=== PATIENT | female | born 1965 | race Caucasian/White ===

== ENCOUNTER 2025-07-30 12:59 | Outpatient (CLI) | payer OTHER, SELFPAY ==
--- OUTSIDE RECORDS SUMMARY | 2024-04-29 16:30 | XMS_ITS ---
Author Organization [facility] [place] ([address]) Address [address] [place] [address] Care Team Providers Care Public Address Systems Mechanic Name Role Phone Ian Doshi MD Primary Care Provider Unavail able Carole Junior Unavailable [phone] [facility], Provider Unavailable Unavailab le Allergies Allergen (clinical drug ingredient) Drug/Non Drug Allergy documented on EMR Reaction Allergy Type Onset Date Status Substance with sulfonamide structure and antibacterial mechanism of action (substance) SULFA (uncoded) Septra Allergy [facility] Conversion Encounter Medications Medication SIG (Take, Route, Frequency, Duration) Notes Start Date End Date Status MULTIVITAMIN WITH MINERALS *Please review for potential replacement for e-prescription and drug interaction check* Active Valtrex 500 MG 1 tab(s) orally once a day Active Celecoxib 200 MG 1 cap(s) orally once a day Active Pantoprazole Sodium 40 MG 1 tab(s) orally once a day Active PARoxetine HCl ER 37.5 MG 1 tab(s) orally once a day (in the morning) Active Encounters Encounter Location Date Provider Diagnosis [address] [address] 04/29/2024 Provider [facility] Plan Of Treatment No Information Progress Notes * Shabana RODRIGUEZ LDOB: [birth year] (60 yo F)Acc No.[id number]:04/29/2024 Patient: Shabana KEARNEY Provider: Yecenia rob Migration :1965 A ge:59 Y S ex:Female Date:04/29/2024 Address:[address] [place] [address], [facility] Pcp:Ian Doshi MD Subjective: * Chief Complaints: * 1 . [facility] En[facility]. * Medical History: * Medications: T aking MULTIVITAMIN WITH MINERALS , Notes to Pharmacist: *Please review for potential replacement for e-prescription and drug interaction check*, Taking Valtrex 500 MG Tablet 1 tab(s) orally once a day , Taking Celecoxib 200 MG Capsule 1 cap(s) orally once a day , Taking Pantoprazole Sodium 40 MG Tablet Delayed Release 1 tab(s) orally once a day , Taking PARoxetine HCl ER 37.5 MG Tablet Extended Release 24 Hour 1 tab(s) orally once a day (in the morning) * Allergies: S ULFA: Septra. Objective: * Vitals: Assessment: Plan: * Treatment: * Billing Information: * Visit Code: * Procedure Codes: * Electronic signature of Hermes LAWSON-Migration on 07/30/2025 at 03:29 PM CDT Sign off status: Pending * Provider: Yecenia rob Migration Date: 04/29/2024 Generated for Tonia jimenes/Loreto/Ken on: 07/30/2025 03:29 PM CDT
--- OUTSIDE RECORDS SUMMARY | 2025-06-13 04:35 | XMS_ITS | Continuity of Care Document ---
Author Organization [employer] [facility] Address [address] [place] [address] Phone Care Team Providers Care Data Visualization Developer Name Role Phone Radha Zazueta MD Unavailable Unavailable Allergies, Adverse Reactions, Alerts Substance Reaction Status Criticality Sulfa (Sulfonamide Antibiotics) Unknown Active No Information Medications Medication Instructions Dosage Effective Dates (start - stop) Status Comments amitriptyline 25 mg tablet take 1 tablet by oral route every day at bedtime 25 MG - Active pantoprazole 40 mg tablet,delayed release take 1 tablet by oral route every day 40 MG - Active paroxetine ER 37.5 mg tablet,extended release 24 hr take 1 tablet by oral route every day 37.5 MG - Active celecoxib 200 mg capsule take 1 capsule by oral route every day as needed 200 MG - Active valacyclovir 500 mg tablet take 1 tablet by oral route every day 500 MG - Active vitamin B complex capsule - Active turmeric 400 mg capsule - Active magnesium 250 mg tablet take 1 tablet by oral route every day 1 tablet - Active Paxlovid 300 mg (150 mg x 2)-100 mg tablets in a dose pack take by oral route 2 times every day for 5 days per package directions 0.00 - No Longer Active Procedures Procedure Date CBC, INC PLATELETS AND DIFFERENTIAL COMPREHEN METABOLIC PANEL CMP LIPID PANEL ROUTINE VENIPUNCTURE VA MED LIST DOCD IN RCRD Pt inelig neg scrn depres IMMUN ADMIN (INC PERCUTANEOUS) SINGLE, F IRST INJ TDAP INTRAMUSCULAR USE PREVENTATIVE-NEW: 40-64 BODY MASS INDEX DOCD SYST BP >= 140 MM HG6 IT DIAST BP >= 90 MM HG Advance Directives Directive Yes / No Effective Date File Name Life Support Not Answered N/A N/A Intubation Not Answered N/A N/A Antibiotics Not Answered N/A N/A IV Fluid Support Not Answered N/A N/A Tube Feed Not Answered N/A N/A Other Directive N/A N/A WARNING:The information contained in this section is historical and is provided for information only and does not constitute a legal document or any assurance that the information is still accurate. Please verify the information with the beckett of the legal document before using it for clinical purposes. Encounters Encounter Description Practice Location Reason(s) For Visit Diagnoses Date Provider Providers Copied on Encounter [facility], [address], [place], [place], [address] , [place] tel: [phone] [facility] No Information 5 Marbin Garcia. [address] [place], [place], [address] , [place]. tel: [phone] [facility], [address], [place], [place], [address] , [place] tel: [phone] [facility] No Information 5 Reid [address]. [address], [id number] , [place]. tel: [phone] Referring Provider: Radha Monahan, [address] [place], [address] . tel:[phone] [facility], [address], [place], [place], [address] , tel: [phone] [facility] Routine medical exam Feb-2 5 Marbin Garcia. [address] [place], [place], [address] , [place]. tel: [phone] Referring Provider: Rahda Monahan, [address] [place], [address] . tel:[phone] [facility], [address], [place], [place], [address] , [place] tel: [phone] [facility] No Information Feb-0 5 Marbin Garcia. [address] [place], [place], [address] , [place]. tel: [phone] Referring Provider: Radha Monahan, [address] [place], [address] . tel:[phone] PREVENTATIVE- NEW: 40-64 [facility], [address], [place], [place], [address] , [place] tel: [phone] [facility] preventive exam (chief complaint)C hronic Conditions (chief complaint) Blood pressure elevated without history of HTNRoutine medical examPostherpetic neuralgiaChronic GERDAnxiety 5 Marbin Garcia. [address] [place], [place], [address] , [place]. tel: [phone] Referring Provider: Radha Monahan, [address] [place], [address] . tel:[phone] Family History Family Member Type Diagnosis Age At Onset Father Problem Migraine headaches Sister Problem Allergies Mother Problem Hypercholesterolemia Sister Problem Osteoporosis Paternal grandmother Problem Cancer, breast Father Problem Hypertension Paternal grandfather Problem Alcoholism Father Problem Depression Father Problem Eczema Mother Problem Depression Mother Problem Allergies Paternal grandfather Problem Allergies Father Problem Allergies Sister Problem Hypertension Mother Problem Osteoporosis Sister Problem Depression Mother Problem Hypertension Mother Problem Irritable bowel syndrome Paternal grandmother Problem Migraine headaches Mother Problem Eczema Paternal grandfather Problem Osteoporosis Immunizations Vaccine Date Status Comments Tdap administered Source: [facility] Record Payers Payer name Insurance type Covered green party ID Authoriza tikhoi(s) [employer] CI [id number] [employer] CI [id number] Social History Type Description Quantity Date Captured Comments Alcohol Use Details Unknown Caffeine Use Details Unknown Tobacco Use Status No Information Smoking Status No Information Sex Female Sexual Orientation Straight or heterosexual Gender Identity Female Chief Complaint And Reason For Visit No Information Reason For Referral Reason For Referral No Information Plan Of Treatment Date Type Action Status Appointment Shabana Abdi BOOKED History Of Present Illness Encounter Date Complaint History Of Prese nt Illness Chronic Conditions *See Chronic Conditions HPI preventive exam Menopausal sympt oms positive for: hot flashes. Pertinent negatives include anxiety and depression. The patient does drink alcohol. Additional information: Routine PE done today.Previously was seeing Dr. Doshi in [place]. Sees Dr. Aquino, facing slitter, for regular pap smears UTD per pt.States colonoscopy was last done by Dr. Dixon in 2023. States mammogram and bone density are up to date. Stays very active. Functional Status Date Functional Assessmen t No Information Instructions Date Instruction Additional Infor mation continue amitriptyline Related t o Postherpetic neuralgia continue pantoprazole Related to Chronic GERD continue paroxetine Related to A nxiety Tdap given todayreco mmend getting the shingles vaccine at the pharmacySchedule fasting labs in 3 weekscontinue [address] with Dr. Pattersonchedjaved your mammogram you are due for next month Related to Routine medical exam Check your blood pre ssure daily at home and bring in log of home readings to your nurse visit in 3 weekslimit salt intaketry to do some regular walking Related to Blood pressure elevated without history of HTN Immunizations Assessments Type Assessment Date No Information Patient Care Teams Name Effective Dates (start - stop) Status Members No Information
--- OUTSIDE RECORDS SUMMARY | 2025-06-18 10:00 | XMS_ITS ---
Author Organization [facility] Address [address] [place], [place] [id number] Care Team Providers Care Gasateria Attendant Name Role Phone AISHWARYACory AMOL Unavailable [phone] Radha Zazueta Unavailable Unavailable Allergies Allergen (clinical drug ingredient) Drug/Non Drug Allergy documented on EMR Reaction Allergy Type Onset Date Status Septra Unknown Drug Allergy Active Substance with sulfonamide structure and antibacterial mechanism of action (substance) Sulfa Antibiotics Unknown Drug Allergy Active REASON FOR VISIT The patient returns for follow-up of a left sided 5th metatarsal neck fracture. It is doing well from a pain and swelling standpoint, but it is mangle tender cloth Medications Medication SIG (Take, Route, Frequency, Duration) Notes Start Date End Date Status valACYclovir HCl 500 MG Oral; Duration: 90 Days Active Amitriptyline HCl 25 MG Oral; Duration: 90 Days Active Celecoxib 200 MG Oral; Duration: 90 Days Active Pantoprazole Sodium 40 MG Oral; Duration: 90 Days Active PARoxetine HCl ER 37.5 MG Oral; Duration: 90 Days Active oxyCODONE-Acetaminophen 5-325 MG 1 tablet as needed Orally every 6 hrs; Duration: 5 days 02/16/2024 Active Pantoprazole Sodium Active Vital Signs Height 68.00 in 06/18/2025 Weight 169 lbs 06/18/2025 BMI 25.69 kg/m2 06/18/2025 Height-cm 172.72 cm 06/18/2025 Weight-kg 76.66 kg 06/18/2025 Encounters Encounter Location Date Provider Diagnosis [facility] [address] [place], [place] [id number] 06/18/2025 AMOL NEFFCory Left foot pain M79.6 72 and Nondisplaced fracture of fifth metatarsal bone, left foot, subsequent encounter for fracture with routine healing S92.355D Assessments Encounter Date Diagnosis (ICD Code) Assessment Notes Treatment Notes Treatment Clinical Notes Section Notes 06/18/2025 Left foot pain (ICD-10 - M79.672) 06/18/2025 Nondisplaced fracture of fifth metatarsal bone, left foot, subsequent encounter for fracture with routine healing (ICD-10 - S92.355D) Fracture Care: I discussed the nature and etiology of the injury to the patient and answered all questions. I discussed rest, immobilization, and time frame for healing. I explained that lack of compliance can lead to delayed healing or nonunion. Continue CAM: Advised the patient to continue to wear the CAM boot as directed and to limit activity. 06/18/2025 Other Plan Of Treatment Treatment Notes Assessment Notes Nondisplaced fracture of fif th metatarsal bone, left foot, subsequent encounter for fracture with routine healing Fracture Care: I discussed the nature and etiology of the injury to the patient and answered all questions. I discussed rest, immobilization, and time frame for healing. I explained that lack of compliance can lead to delayed healing or nonunion. Continue CAM: Advised the patient to continue to wear the CAM boot as directed and to limit activity. Next Appt Details Follow Up: 2 Weeks, Reason: Repeat xrays 3 views of the left foot. Anticipate resolution Progress Notes * JENNA RODRIGUEZ LDOB: [birth year] (60 yo F)Acc No.[id number]:06/18/2025 Patient: JENNA KEARNEY Provider: Nola Magana DPM :1965 A ge:60 Y S ex:Female Date:06/18/2025 Address:[address] [place] [address] Subjective: * Chief Complaints: * 1 . The patient returns for follow-up of a left sided 5th metatarsal neck fracture. It is doing well from a pain and swelling standpoint, but it is mangle tender cloth. * HPI: H [facility] cam [facility]. Patient states that the foot seems to be doing good. She states that there is slight pain every once in a while. Patient has been icing the foot as needed. , MA: isadora. * ROS: G eneral / Constitutional: Patient denies w eakness. R espiratory: Patient denies c hronic cough, shortness of breath, sputum production. C ardiovascular: Patient denies c hest pain, history of ME, irregular heartbeat. M usculoskeletal: Patient complains of j oint stiffness, arch pain, flat feet/ planus, joint pain. P eripheral Vascular: Patient denies b lanching of skin, cold extremities, decreased sensation in extremities. S kin: Patient denies f ungal nails, itching. N eurologic: Patient denies d izziness, gait abnormality, headache. * Medical History: A kelly reflux. * Social History: M igrated Social History: M igrated Social History: Alcohol intake : , Smoking Status : Never smoked , History of tobacco use :. * Medications: T aking Pantoprazole Sodium , Taking oxyCODONE-Acetaminophen 5-325 MG Tablet 1 tablet as needed Orally every 6 hrs , Taking Amitriptyline HCl 25 MG Tablet Oral , Taking valACYclovir HCl 500 MG Tablet Oral , Taking Celecoxib 200 MG Capsule Oral , Taking PARoxetine HCl ER 37.5 MG Tablet Extended Release 24 Hour Oral , Taking Pantoprazole Sodium 40 MG Tablet Delayed Release Oral , Medication List reviewed and reconciled with the patient * Allergies: S ulfa Antibiotics, Septra. Objective: * Vitals: S hoe Size: 9, Wt:169lbs, Wt-k.66 kg, Ht: 68.00 in, Ht-cm: 172.72 cm, BMI:25.69Index, Body Surface Area: 1.92. * Examination: C onstitutional: Constitutional T he patient is awake, alert, well developed, well groomed and well nourished. D ermatologic: Skin findings: S kin is warm, dry, supple with no breaks in the skin. Slight ecchymosis to the left forefoot, lateral portion. V ascular: Dorsalis pedis pulse: 2 /4, bilateral. Posterior tibial pulse: 2 /4, bilateral. Capillary refill: l ess than 3 seconds. Edema: m inimal edema to the left 4th and 5th MPJ. ? N eurologic: Gross sensation G ross sensation is intact to light touch.? M usculoskeletal: Muscle Strength M uscle strength is 5/5 in regards to dorsiflexion, plantarflexion, inversion, and eversion in bilateral lower extremities. Pain on palpation m ild pain on palpation to the left 5th metatarsal head, neck, and distal shaft of the left foot. R adiographs: Left Foot T here is a faint transverse radiolucent line within the 5th metatarsal neck of the left foot. Xray Order T est Requested: 3 Views Weightbearing (AP, LAT, Oblique) Foot, left. Assessment: * Assessment: 1. N ondisplaced fracture of fifth metatarsal bone, left foot, subsequent encounter for fracture with routine healing - S92.355D (Primary) 2 . L eft foot pain - M79.672 ? Plan: * Treatment: * Immunizations: Immunization record has been reviewed and updated. * Procedure Codes: 7 3630 X-RAY EXAM OF FOOT, Modifiers: LT * Follow Up: 2 Weeks (Reason: Repeat xrays 3 views of the left foot. Anticipate resolution) * Billing Information: * Visit Code: 69598 Office Visit, Est Pt., Level 3. * Procedure Codes: 76164 X-RAY EXAM OF FOOT. Modifiers: LT * Electronic signature of AMOL MAGANA DPM on 07/30/2025 at 03:29 PM CDT Sign off status: Pending * Provider: Nola Magana DPM Date: 0 06/18/2025 Generated for Tonia jimenes/Loreto/Ken on: 0 07/30/2025 03:29 PM CDT History and Physical Notes * HPI (History of Present Illness) Category Sub-Category Detail Notes Category Not es HPI Follow Up Visit Patient presents for follow-up visit for left cam boot. Patient states that the foot seems to be doing good. She states that there is slight pain every once in a while. Patient has been icing the foot as needed. , MA: [facility] Examination Category Sub-Category Detail Notes Category Not es Dermatologic Skin findings: Skin is warm, dr y, supple with no breaks in the skin. Slight ecchymosis to the left forefoot, lateral portion Neurologic Gross sensation Gross sensation is intact to light touch Vascular Dorsalis pedis pulse: 2/4, bilateral Edema: minimal edema to the left 4th and 5th MPJ Capillary refill: less than 3 seconds Posterior tibial pulse: 2/4, bilateral Musculoskeletal Muscle Strength Muscle strength is 5/5 in regards to dorsiflexion, plantarflexion, inversion, and eversion in bilateral lower extremities Pain on palpation mild pain on palpati on to the left 5th metatarsal head, neck, and distal shaft of the left foot Constitutional Constitutional The patient is a wake, alert, well developed, well groomed and well nourished Radiographs Left Foot There is a faint transverse radiolucent line within the 5th metatarsal neck of the left foot Xray Order Test Requested: 3 Vi ews Weightbearing (AP, LAT, Oblique) Foot, left
--- OUTSIDE RECORDS SUMMARY | 2025-07-02 10:10 | XMS_ITS ---
Author Organization [facility] Address [address] [place], [place] [address] Care Team Providers Care Chair Mender Name Role Phone AMOL MAGANA Unavailable [phone] Radha Zazueta Unavailable Unavailable Allergies Allergen (clinical drug ingredient) Drug/Non Drug Allergy documented on EMR Reaction Allergy Type Onset Date Status Septra Unknown Drug Allergy Active Substance with sulfonamide structure and antibacterial mechanism of action (substance) Sulfa Antibiotics Unknown Drug Allergy Active REASON FOR VISIT The patient returns for follow-up of a 5th metatarsal fracture of the left foot. She has been in the CAM boot and is doing much better. It is still sore Medications Medication SIG (Take, Route, Frequency, Duration) Notes Start Date End Date Status Pantoprazole Sodium 40 MG Oral; Duration: 90 Days Active valACYclovir HCl 500 MG Oral; Duration: 90 Days Active oxyCODONE-Acetaminophen 5-325 MG 1 tablet as needed Orally every 6 hrs; Duration: 5 days 02/16/2024 Active Amitriptyline HCl 25 MG Oral; Duration: 90 Days Active Pantoprazole Sodium Active PARoxetine HCl ER 37.5 MG Oral; Duration: 90 Days Active Celecoxib 200 MG Oral; Duration: 90 Days Active Encounters Encounter Location Date Provider Diagnosis [facility] [address] [place], [place] [id number] 07/02/2025 AMOL MAGANA Nondisplaced fractur e of fifth metatarsal bone, left foot, subsequent encounter for fracture with routine healing S92.355D and Left foot pain M79.672 Assessments Encounter Date Diagnosis (ICD Code) Assessment Notes Treatment Notes Treatment Clinical Notes Section Notes 07/02/2025 Nondisplaced fracture of fifth metatarsal bone, left foot, subsequent encounter for fracture with routine healing (ICD-10 - S92.355D) Fracture Care: I discussed the nature and etiology of the injury to the patient and answered all questions. I discussed rest, immobilization, and time frame for healing. I explained that lack of compliance can lead to delayed healing or nonunion. Discontinue CAM boot. Resume surgical shoe (patient already has) 07/02/2025 Left foot pain (ICD-10 - M79.672) Plan Of Treatment Treatment Notes Assessment Notes Nondisplaced fracture of fif th metatarsal bone, left foot, subsequent encounter for fracture with routine healing Fracture Care: I discussed the nature and etiology of the injury to the patient and answered all questions. I discussed rest, immobilization, and time frame for healing. I explained that lack of compliance can lead to delayed healing or nonunion. Discontinue CAM boot. Resume surgical shoe (patient already has) Next Appt Details Follow Up: 3 Weeks, Reason: Repeat xrays 3 views of the left foot. See how surgical shoe was toleratedAnticipate resoution. Progress Notes * JENNIFER JENNA LDOB: [birth year] (60 yo F)Acc No.[id number]:07/02/2025 Patient: JENNA KEARNEY Provider: Nola Magana DPM :1965 A ge:60 Y S ex:Female Date:07/02/2025 Address:[address] [place] [address] Subjective: * Chief Complaints: * 1 . The patient returns for follow-up of a 5th metatarsal fracture of the left foot. She has been in the CAM boot and is doing much better. It is still sore. * HPI: H PI: Follow Up Visit P atient presents for follow up visit for left foot fracture check., Patient states their problem is, improving. Pain has lessened., MA: myra.? * ROS: G eneral / Constitutional: Patient denies w eakness. R espiratory: Patient denies c hronic cough, shortness of breath, sputum production. C ardiovascular: Patient denies c hest pain, history of AL, irregular heartbeat. M usculoskeletal: Patient complains of [...] S ulfa Antibiotics, Septra. Objective: * Vitals: * Examination: C onstitutional: Constitutional T he [...] bilateral lower extremities. Pain on palpation m inimal pain on palpation to the left 5th metatarsal head, neck, and distal shaft of the left foot. R adiographs: Left Foot T here is a faint transverse radiolucent line within the 5th metatarsal neck of the left foot surrounded by bone callus and new bone growth.? Xray Order T est Requested: 3 Views Weightbearing (AP, LAT, Oblique) Foot, left. Assessment: * Assessment: 1. N ondisplaced fracture of fifth metatarsal bone, left foot, subsequent encounter for fracture with routine healing - S92.355D (Primary) 2 . L eft foot pain - M79.672 ? Plan: * Treatment: * Procedure Codes: 7 3630 X-RAY EXAM OF FOOT, Modifiers: LT * Follow Up: 3 Weeks (Reason: Repeat xrays 3 views of the left foot. See how surgical shoe was toleratedAnticipate resoution.) * Billing Information: * Visit Code: 34463 Office Visit, Est Pt., Level 3. * Procedure Codes: 97476 X-RAY EXAM OF FOOT. Modifiers: LT * Electronic signature of AMOL MAGANA DPM on 07/30/2025 at 03:28 PM CDT Sign off status: Pending * Provider: Nola Magana DPM Date: 0 07/02/2025 Generated for Tonia jimenes/Loreto/Ken on: 0 07/30/2025 03:28 PM CDT History and Physical Notes * HPI (History of Present Illness) Category Sub-Category Detail Notes Category Not es HPI Follow Up Visit Patient presents for follow up visit for left foot fracture check., Patient states their problem is, improving. Pain has lessened., MA: mf Examination Category Sub-Category Detail Notes Category Not [...] in bilateral lower extremities Pain on palpation minimal pain on palp ation to the left 5th metatarsal head, neck, and distal shaft of the left foot Constitutional Constitutional The patient is a wake, alert, well developed, well groomed and well nourished Radiographs Left Foot There is a faint transverse radiolucent line within the 5th metatarsal neck of the left foot surrounded by bone callus and new bone growth Xray Order Test Requested: 3 Vi ews Weightbearing (AP, LAT, Oblique) Foot, left
--- OUTSIDE RECORDS SUMMARY | 2025-07-23 09:30 | XMS_ITS ---
Author Organization [facility] Address [address] [place], [place] [id number] Care Team Providers Care Field Technical Specialist Name Role Phone AMOL MAGANA Unavailable [phone] Radha Zazueta Unavailable Unavailable Allergies Allergen (clinical drug ingredient) Drug/Non Drug Allergy documented on EMR Reaction Allergy Type Onset Date Status Septra Unknown Drug Allergy Active Substance with sulfonamide structure and antibacterial mechanism of action (substance) Sulfa Antibiotics Unknown Drug Allergy Active REASON FOR VISIT The patient returns for follow-up of a left sided 5th metatarsal fracture. It was no longer hurtingso she stopped the surgical shoe and started wearing an athletic shoe Medications Medication SIG (Take, Route, Frequency, Duration) Notes Start Date End Date Status Amitriptyline HCl 25 MG Oral; Duration: 90 Days Active oxyCODONE-Acetaminophen 5-325 MG 1 tablet as needed Orally every 6 hrs; Duration: 5 days 02/16/2024 Active Celecoxib 200 MG Oral; Duration: 90 Days Active valACYclovir HCl 500 MG Oral; Duration: 90 Days Active Pantoprazole Sodium Active Pantoprazole Sodium 40 MG Oral; Duration: 90 Days Active PARoxetine HCl ER 37.5 MG Oral; Duration: 90 Days Active Encounters Encounter Location Date Provider Diagnosis [facility] [address] [place], [place] [id number] 07/23/2025 AMOL MAGANA Nondisplaced fractur e of fifth metatarsal bone, left foot, subsequent encounter for fracture with routine healing S92.355D Assessments Encounter Date Diagnosis (ICD Code) Assessment Notes Treatment Notes Treatment Clinical Notes Section Notes 07/23/2025 Nondisplaced fracture of fifth metatarsal bone, left foot, subsequent encounter for fracture with routine healing (ICD-10 - S92.355D) Fracture Resolved The fracture has resolved. I advised the patient to continue to monitor this area for pain or swelling. I also advised the patient to avoid bare feet or any high impact activities until it is done healing. The patient understands to contact the office if any signs of symptoms return. Plan Of Treatment Treatment Notes Assessment Notes Nondisplaced fracture of fif th metatarsal bone, left foot, subsequent encounter for fracture with routine healing Fracture Resolved The fracture has resolved. I advised the patient to continue to monitor this area for pain or swelling. I also advised the patient to avoid bare feet or any high impact activities until it is done healing. The patient understands to contact the office if any signs of symptoms return. Next Appt Details Follow Up: prn, Reason: Progress Notes * JENNIFER RODRIGUEZON LDOB: [birth year] (60 yo F)Acc No.[id number]:07/23/2025 Patient: JENNA KEARNEY Provider: Nola Magana DPM :1965 A ge:60 Y S ex:Female Date:07/23/2025 Address:[address] [place] [address] Subjective: * Chief Complaints: * 1 . The patient returns for follow-up of a left sided 5th metatarsal fracture. It was no longer hurting so she stopped the surgical shoe and started wearing an athletic shoe. * HPI: H PI: [facility] for left foot facture check., Patient states their problem is, improving. Does have some swelling at the end of the day but overall doing better., MA: mf. * ROS: G eneral / Constitutional: Patient denies w eakness. R espiratory: Patient denies c hronic cough, shortness of breath, sputum production. C ardiovascular: Patient denies c hest pain, history of ID, irregular heartbeat. M usculoskeletal: Patient complains of [...] in bilateral lower extremities. Pain on palpation n o pain on palpation to the left 5th metatarsal head, neck, and distal shaft of the left foot. R adiographs: Left Foot T here is bone callus and new bone growth around the 5th metatarsal neck. The fracture line is no longer visible. Xray Order T est Requested: 3 Views Weightbearing (AP, LAT, Oblique) Foot, left. Assessment: * Assessment: 1. N ondisplaced fracture of fifth metatarsal bone, left foot, subsequent encounter for fracture with routine healing - S92.355D (Primary) Plan: * Treatment: * Follow Up: p rn * Billing Information: * Visit Code: * Procedure Codes: * Electronic signature of AMOL MAGANA DPM on 07/30/2025 at 03:29 PM CDT Sign off status: Pending * Provider: Nola Magana DPM Date: 0 07/23/2025 Generated for Tonia jimenes/Loreto/Ken on: 0 07/30/2025 03:29 PM CDT History and Physical Notes * HPI (History of Present Illness) Category Sub-Category Detail Notes Category Not es HPI Follow Up Visit Patient presents for follow up visit for left foot facture check., Patient states their problem is, improving. Does have some swelling at the end of the day but overall doing better., MA: mf Examination Category Sub-Category Detail Notes [...] in bilateral lower extremities Pain on palpation no pain on palpation to the left 5th metatarsal head, neck, and distal shaft of the left foot Constitutional Constitutional The patient is a wake, alert, well developed, well groomed and well nourished Radiographs Left Foot There is bone ca llus and new bone growth around the 5th metatarsal neck. The fracture line is no longer visible Xray Order Test Requested: 3 Vi ews Weightbearing (AP, LAT, Oblique) Foot, left
--- NOTE | ~2025-07-30 | XR_ITS ---
XR abdomen/kub 1V 07/30/2025 13:20 INDICATION: Right kidney stone TECHNIQUE: KUB COMPARISON: None FINDINGS: Bowel gas pattern is normal. There is no evidence of free air, mass, organomegaly, ascites or obstruction. There is a 3 mm stone in the lower pole of the right kidney. There is severe lower thoracic and lumbar spondylosis with dextroscoliosis. IMPRESSION: 1: Right nephrolithiasis.. Reviewed, dictated and finalized at location O. IMPRESSION: 1: Right nephrolithiasis..
--- OUTSIDE RECORDS SUMMARY | 2025-07-30 15:29 | XMS_ITS | Clinical Summary ---
Author Organization [facility] Address [address] [place] [id number] Care Team Providers Care Kitchen Supervisor Name Role Phone Ian Doshi MD Primary Care Provider + Gustavo Dixon MD Unavailable Allergies Active Allergy Reactions Criticality Noted Date Comments Cefuroxime Anaphylaxis High 07/08/2020 Sulfa (Sulfonamide Antibiotics) Hives Medium 03/15 Sulfamethoxazole-Trimethoprim Hives Medium 2018 Medications aspirin 81 mg enteric coated tablet 1 tablet (81 mg total) daily Active acetaminophen (TYLENOL) 325 mg tabletIndicatio ns:Fever,Pain Take 2 tablets (650 mg total) by mouth every 4 (four) hours as needed for pain 30 tablet 09/16/2023 Active ibuprofen (ADVIL,MOTRIN) 400 mg tablet Take 1 tablet (400 mg total) by mouth every 6 (six) hours as needed for pain 09/16/[address] (PROTONIX) 40 mg EC tablet Take 1 tablet (40 mg total) by mouth daily 14 tablet 09/16/2023 Active celecoxib (CeleBREX) 200 mg capsule Take by mouth daily 12/29/2023 Active polyethylene glycol-electrol ytes 420 gram solution TAKE DIRECTED BY OFFICE 01/03/2024 Active valACYclovir (VALTREX) 500 mg tablet Take 1 tablet (500 mg total) by mouth daily 01/05/2024 Active PARoxetine CR (PAXIL-CR) 37.5 mg 24 hr tablet Take 1 tablet (37.5 mg total) by mouth every morning 90 tablet 3 01/10/2024 Active lidocaine (LIDODERM) 5 % Place 1 patch on the skin daily Remove & discard patch within 12 hours or as directed by . 30 patch 3 01/10/2024 Active Active Problems Patient Care Coordination No te Formatting of this note migh t be different from the original. Vicky Jaime NP 07/15/2023 12:01 PM This is a 58-year-old female patient presenting to the clinic today in consultation for a hiatal hernia. She was referred to the clinic by Dr. Ian Doshi. She is a medical history significant for depression, hypercalcemia, scoliosis, and PCOS. She is never been a smoker. She underwent an upper GI on 05/21/2023 which reveals: FINDINGS: Swallowing was performed in the upright and prone position without difficulty. The esophagus demonstrates a normal contour and caliber with no intrinsic or extrinsic defect. Normal peristalsis. The mucosal pattern appear normal. There is a small hiatal hernia. This measured 1 x 1.9 cm. There is no evidence of reflux during this exam or during provocative maneuvers. The stomach demonstrates a normal position and mucosal pattern. No intrinsic or extrinsic defect. No ulceration. he C-loop of the duodenum appears normal in position and mucosal pattern. No ulceration. A small diverticulum is seen of the C-loop of the duodenum. IMPRESSION: There is a small hiatal hernia measuring 1 x 1.9 cm. No evidence of reflux during this exam or during provocative maneuvers.The stomach and duodenum are normal. She is here for further surgical evaluation and discussion. Problem Noted Date Diagnosed Date Biliary colic 09/14/2023 Hiatal hernia without gangrene and obstruction 0 07/26/2023 Duodenal diverticulum 07/26/2023 Esophagitis determined by endoscopy 07/26/2023 Gallbladder polyp 07/26/2023 Recurrent major depression 01/04/2023 Dysplasia of cervix, low grade (SOUTH 1) 1 Overview (06/18/2021): Added automatically from request for surgery [id number] Low grade squamous intraepit helial lesion on cytologic smear of cervix (LGSIL) 04/01/2020 Overview (05/02/2020): 2017: LSIL, + HR HPV (neg 16/18) Colpo: CIN1 2018: LSIL, + HR HPV (neg 16/18) Colpo: neg 2020: ASCUS-H, + HR HPV Colpo: neg Carpal tunnel syndrome, right upper limb 017 Immunizations Immunization Administration Dates Next Due Influenza, Unspecified 09/06/2023 Surgical History Surgery Date Site/Laterality Comments THYROID SURGERY 11/15/2009 - 11/14/2010 N/A unilateral parathyroidectomy TONSILLECTOMY BUNIONECTOMY Bilateral CARPAL TUNNEL RELEASE Bilateral COLONOSCOPY UPPER GASTROINTESTINAL ENDOSCOPY Medical History Medical History Date Comments Depression Hypercalcemia controlling w di et currently Abnormal Pap smear of cervix 2018 Genital warts hx Scoliosis PCOS (polycystic ovarian syndrome) Hiatal hernia Family History Medical History Relation Name Comments Heart failure Father Family history of congestive heart failure - (Added by TW Conv) Breast cancer Maternal Grandmother Heart failure Mother Family history of congestive heart failure - (Added by TW Conv) Hypertension Mother Family history of hypertension - (Added by TW Conv) Breast cancer Mother's Sister Colon cancer Neg Hx Ovarian cancer Neg Hx Pancreatic cancer Neg Hx Prostate cancer Neg Hx Uterine cancer Neg Hx Relation Name Status Comments Father Maternal Grandmother Mother Mother's Sister Other 1 Other 2 Social History Tobacco Use Types Packs/Day Years Used Date Smoking Tobacco: Never Smokeless Tobacco: Never Tobacco Cessation:Counseling Given: Not Answered Alcohol Use Standard Drinks/Week Comments Yes 6 (1 standard drink = 0.6 oz pur e alcohol) [facility] Utilities Answer Date Recorded In the past 12 months has [employer], gas, oil, or water [employer] threatened to shut off services in your home? No 09/15/2023 Social Connection and Isolation Panel Answer Date Recorded In a typical week, how many times do you talk on the phone with family, friends, or neighbors? More than three times a week 09/15/2023 How often do you get togethe r with friends or relatives? More than three times a week 09/15/2023 How often do you attend chur or hindu services? Never 09/15/2023 Do you belong to any clubs o r organizations such as nondenominational groups, unions, fraternal or athletic groups, or school groups? No 09/15/2023 How often do you attend meet ings of the clubs or organizations you belong to? Never 09/15/2023 Are you , , di vorced, , never , or living with a partner? Living with partner 09/15/2023 AUDIT-C Answer Date Recorded Q1: How often do you have a drink containing alcohol? 4 or more times a week 09/14/2023 Q2: How many drinks containi ng alcohol do you have on a typical day when you are drinking? 5 or 6 Q3: How often do you have si x or more drinks on one occasion? Weekly 09/14/2023 Overall Financial Resource Strain (CARDIA) Answe r Date Recorded How hard is it for you to pa y for the very basics like food, housing, medical care, and heating? Not hard at all 09/15/2023 Hunger Vital Sign Answer Date Recorded Within the past 12 months, y ou worried that your food would run out before you got the money to buy more. Never true 09/15/20 23 Within the past 12 months, t he food you bought just didn't last and you didn't have money to get more. Never true 09/15/2023 PRAPARE - Transportation Answer Date Re corded In the past 12 months, has l ack of transportation kept you from medical appointments or from getting medications? No 11/2022 In the past 12 months, has l ack of transportation kept you from meetings, work, or from getting things needed for daily living? No 09/15/2023 Housing Stability Vital Sign Answer Osmar e Recorded In the last 12 months, was t here a time when you were not able to pay the mortgage or rent on time? No 09/15/2023 In the last 12 months, how many places have you lived? 1 09/15/2023 In the last 12 months, was t here a time when you did not have a steady place to sleep or slept in a detention (including now)? No 09/15/2023 Personal Safety Answer Date Recorded Have you ever been in or are you currently in a harmful physical or emotional relationship or is someone making you feel afraid or unsafe? Denies 09/14/2023 Comments No Sex and Gender Information Value Date Recorded Sex Assigned at Not on file Legal Sex Female 7:53 AM PAY STATION ATTENDANT Gender Identity Not on file Sexual Orientation Straight 04/19/2021 9: 45 AM CDT Obstetrics History Para Term AB IAB SAB Ectopic Multiple Livin g Live Births 0 0 0 0 0 0 0 0 0 0 0 Last Filed Vital Signs Vital Sign Reading Time Taken Comments Blood Pressure 124/80 01/10/2024 12:31 PM PAY STATION ATTENDANT Pulse 83 09/16/2023 11:27 AM CDT Temperature 36.9 C (98.4 F) 09/16/2023 11:27 AM CDT Respiratory Rate 18 09/16/2023 11:27 AM CDT Oxygen Saturation 98% 09/16/2023 11:27 AM CDT Inhaled Oxygen Concentration - - Weight 81.2 kg (179 lb) 01/10/2024 12:31 PM PAY STATION ATTENDANT Height 162.6 cm (5' 4.02) 01/10/2024 12:[address] Body Mass Index 30.71 01/10/2024 12:31 PM PAY STATION ATTENDANT Plan of Treatment Health Maintenance Due Date Last Done Comments Colon Cancer Screening-Colonoscopy 1965 Depression Screening 1965 Hepatitis C Screening 1965 Zoster Vaccine (1 of 2) 01/30/2014 DTaP/Tdap/Td Vaccine (2 - Td or Tdap) 01/18/2017 01/18/2007 Cervical Cancer Screening 01/10/20252023, 01/10/2024, 01/04/2023, Additional history exists Regular Well Visit/Exam 18-64 01/10/2025 01/10/2024, 01/04/2023, 04/25/2021, Additional history exists Breast Cancer Screening-Mammogram 03/03/2025 03/03/2024, 02/27/2023, 10/22/2021, Additional history exists Influenza Vaccine (#1) 2025 , 08/16/2020, 12/10/2017, Additional history exists Hepatitis B Screening Completed 04/17/2003 , 12/14/2002, 11/20/2002, Additional history exists Pneumococcal vaccine <65 Aged Out No longer eligible based on patient's age to complete this topic Procedures Procedure Name Priority Date/Time Associated Diagnosis Comments SCREENING MAMMOGRAM BILATERAL W ALONSO Schedule Routine, Read Routine (OP Routine) 03/03/2024 10:31 AM CDT Screening mammogram, encounter for HIGH RISK HPV DNA DETECTION WITH GENOTYPING Routine 01/10/2024 1:16 PM PAY STATION ATTENDANT Well woman exam with routine gynecological exam from Last 3 Months or Most Recently Relevant to Health Maintenance Results * Screening Mammogram Bilateral W Alonso (03/03/2024 10:31 AM CDT) Anatomical Region Laterality Modality Breast Bilateral Mammography Impressions 03/03/2024 10:58 AM CDT BI-RADS ATLAS category (overall): 1 - Negative There is no mammographic evidence of malignancy. A 1 year screening mammogram is recommended. The patient has been or will be contacted. We recommend annual screening mammography for women at average risk of breast cancer beginning at age 40, based on guidelines of the [employer] (ACR Practice Parameter for the Performance of Screening and Diagnostic Mammography) and [place] [employer]. For women with and elevated risk of breast cancer, please refer to the ACR Practice Parameter for specific screening recommendations. The patient will be entered into a reminder system with a target due date of 1 year for her next screening exam. Narrative 03/03/2024 10:58 AM CDT Screening Mammogram Bilateral W Alonso: 03/03/24 The study was acquired using full field digital technology and interpreted from soft copy. 2D digital mammographic views, as well as 3D digital tomosynthesis were performed in the CC and MLO projections. CLINICAL: Screening mammogram, encounter for. No relevant medical history has been documented for this patient. History of breast cancer in Maternal Grandmother, Mother's Sister. COMPARISONS: 02/27/2023 Screening Mammogram Bilateral W Alonso 10/22/2021 SCREENING MAMMOGRAM BILATERAL W ALONSO 07/10/2020 Screening Mammogram Bilateral W Alonso 12/05/2018 Screening Mammogram Bilateral W Alonso 10/18/2017 Screening Mammogram Bilateral W Alonso 02/04/2015 Screening Mammogram Bilateral W Alonso 12/25/2013 Screening Mammogram 2D Bilateral BREAST TISSUE: The breasts have scattered areas of fibroglandular density. FINDINGS: No suspicious masses, suspicious calcifications, or other suspicious findings are seen within either breast. There has been no suspicious change. us Self Screening Mammogram IMG MAMMO PROCEDURES Fi nal Result * High Risk HPV DNA Detection with Genotyping (Molecular component) (01/10/2024 1:16 PM PAY STATION ATTENDANT) HPV HR 16 Not Detected Not Detected PAULETTE SILVERIO Comment:Testing performed by : , [address] [place]., [address] HPV HR 18 Not Detected Not Detected PAULETTE SILVERIO Comment:Testing performed by : , [address] [place]., [address] HPV HR Non 16/18 Not Detected Not Detected PAULETTE SILVERIO Comment: Interpretive Data Nucleic acid amplification for detection of high-risk Human Papilloma virus (HPV) is performed by the Genoveva Frank 6800 HPV test. This assay specifically detects HPV-16 and HPV-18 genotypes. The following HPV genotypes are detected as high-risk HPV: HPV-31, 33, 35, ,39, 45, 51, 52, 56, 58, 59, 66, and 68. This assay has been approved by the [place] Food and Drug Administration for detection of HPV in cervical specimens collected by a physician using an endocervical brush/spatula or cervical broom and placed in the ThinPrep Pap Test PreservCyt collection containers. The performance characteristics of this test have been verified by the [facility] Molecular Infectious Disease laboratory. Correlate with separately reported cytology results, as applicable. Interpretive data last revised 23 Testing performed by: , [address] [place]., [address] Endocervical 01/10/2024 1:16 PM PAY STATION ATTENDANT 01/11/2024 9:53 AM PAY STATION ATTENDANT Narrative PAULETTE SILVERIO - 01/12/2024 6:49 AM PAY STATION ATTENDANT Clinical history and diagnosis->Routine Number of vials->1 Testing type->Screening Last menstrual period (date if known)->PM Loren Aquino MD LAB BODY FLUIDS AND STOOLS ORDERABLES Final Result PAULETTE SILVERIO [address] [facility] [place] [address] from Last 3 Months or Most Recently Relevant to Health Maintenance Insurance AETNA SIG [id number] AETNA SIG [id number] AETNA SIG [id number] Advance Directives For more information, please contact: [phone] * Full Code (Latest Code Status on File) Date Activated Date Inactivated Comments 09/14/2023 3:50 PM 09/16/2023 7:28 PM * Full Code Date Activated Date Inactivated Comments 07/02/2021 11:37 AM 07/02/2021 3:48 PM Care Teams Kitchen Supervisor Relationship Specialty Start Date End Date Ian Doshi MD PCP - General Family Medicine 03/04/20 Gustavo Dixon MD [address] [place] [address] Referring Physician Gastroenterology 07/26/23
--- OUTSIDE RECORDS SUMMARY | 2025-07-30 15:29 | XMS_ITS | Encounter Summary ---
Author Organization [facility] Care Team Providers Care Hot Stick Worker Name Role Phone Elliot Lopez Primary Care Provider [phone] Elliot Lopez Primary Care Provider [phone] Letha Mustafa MD Primary Care Provider [phone] Ian Doshi MD Primary Care Provider + Sourav Shoemaker DO Primary Care Provider + Ian Doshi MD Primary Care Provider + Gustavo Dixon MD Unavailable [phone] Encounter Details Date Type Department Care Team (Latest Contact Info) Description 10/26/2017 Orders Only [facility] ProviderMekhi MD [address] [place] [id number] Social History Tobacco Use Types Packs/Day Years Used Date Smoking Tobacco: Never Comments Unknown Sex and Gender Information Value Date Recorded Sex Assigned at Not on file Legal Sex Female 7:53 AM CHRISTIAN MINISTRIES PROFESSOR Gender Identity Not on file Sexual Orientation Straight 04/19/2021 9: 45 AM CDT documented as of this encounter Plan of Treatment Not on file documented as of this encounter Procedures Procedure Name Priority Date/Time Associated Diagnosis Comments PROCEDURE - RESULT 10/26/2017 12 :00 AM CHRISTIAN MINISTRIES PROFESSOR PROCEDURE - RESULT 10/26/2017 12 :00 AM CHRISTIAN MINISTRIES PROFESSOR PROCEDURE - RESULT 10/26/2017 12 :00 AM CHRISTIAN MINISTRIES PROFESSOR documented in this encounter Results * PROCEDURE - RESULT (10/26/2017 12:00 AM CHRISTIAN MINISTRIES PROFESSOR) Narrative 10/26/2017 12:00 AM CHRISTIAN MINISTRIES PROFESSOR Ordered by an unspecified provider. [facility] Provider Final Res ult * PROCEDURE - RESULT (10/26/2017 12:00 AM CHRISTIAN MINISTRIES PROFESSOR) Narrative 10/26/2017 12:00 AM CHRISTIAN MINISTRIES PROFESSOR Ordered by an unspecified provider. Historical Provider Final Res ult * PROCEDURE - RESULT (10/26/2017 12:00 AM CHRISTIAN MINISTRIES PROFESSOR) Narrative 10/26/2017 12:00 AM CHRISTIAN MINISTRIES PROFESSOR Ordered by an unspecified provider. [facility] Provider Final Res ult documented in this encounter Visit Diagnoses Not on filedocumented in this encounter Additional Health Concerns Infection Onset Date Last Indicated Resolved Time COVID: Suspected 09/15/2023 09/15/2023 09/15/2023 2:45 PM CDT COVID19 09/15/2023 09/15/2023 09/26/2023 3:05 AM CHRISTIAN MINISTRIES PROFESSOR Varicella/Zoster, contact + airborne Comment:09/16/23- shingles 09/16/2023 09/16/2023 09/23/2023 3: 05 AM CHRISTIAN MINISTRIES PROFESSOR COVID: Recovered Comment:Added based on recent COVID infection. 09/26/2023 09/28/2023 12/25/2023 3:[address] documented as of this encounter Care Teams Hot Stick Worker Relationship Specialty Start Date End Date Elliot Lopez PA [address] [place] [address] PCP - General 08/23/17 03/20/18 Elliot Lopez PA [address] [place] [address] PCP - General 03/21/18 03/27/18 Letha Mustafa MD [address] [place] [address] PCP - General 03/28/18 03/09/19 Ian Doshi MD [address] [place] [address] PCP - General 03/10/19 03/28/19 Sourav Shoemaker DO [address] [place] [address] PCP - General Family Medicine 03/29/19 03/03/20 Ian Doshi MD [address] [place] [address] PCP - General Family Medicine 03/04/20 Gustavo Dixon MD [address] [place] [address] Referring Physician Gastroenterology 07/26/23 documented as of this encounter
--- OUTSIDE RECORDS SUMMARY | 2025-07-30 15:30 | XMS_ITS | Encounter Summary ---
Author Organization [facility] Facility Care Team Providers Care Patient Assessment Coordinator Name Role Phone Elliot Lopez Primary Care Provider [phone] Elliot Lopez Primary Care Provider [phone] Letha Mustafa MD Primary Care Provider [phone] Ian Doshi MD Primary Care Provider + Sourav Shoemaker DO Primary Care Provider + Ian Doshi MD Primary Care Provider + Gustavo Dixon MD Unavailable [phone] Encounter Details Date Type Department Care Team (Latest Contact Info) Description 09/27/2017 Orders Only [facility] ProviderMekhi MD [address] [place] [address] Social History Tobacco Use Types Packs/Day Years Used Date Smoking Tobacco: Never Comments Unknown Sex and Gender Information Value Date Recorded Sex Assigned at Not on file Legal Sex Female 7: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 us Historical Provider Final Res ult documented in this encounter Visit Diagnoses Not on filedocumented in this encounter Additional Health Concerns Infection Onset Date Last Indicated Resolved Time COVID: Suspected 09/15/2023 09/15/2023 09/15/2023 2:45 PM CDT COVID19 09/15/2023 09/15/2023 09/26/2023 3:05 AM AUTOMATIC NAILING MACHINE OPERATOR Varicella/Zoster, contact + airborne Comment:09/16/23- shingles 09/16/2023 09/16/2023 09/23/2023 3: 05 AM AUTOMATIC NAILING MACHINE OPERATOR COVID: Recovered Comment:Added based on recent COVID infection. 09/26/2023 09/28/2023 12/25/2023 3:[address] documented as of this encounter Care Teams Patient Assessment Coordinator Relationship Specialty Start Date End Date Elliot Lopez PA [address] [place], [place] [id number] PCP - General 08/23/17 03/20/18 Elliot Lopez PA [address] [place], [place] [address] PCP - General 03/21/18 03/27/18 Letha Mustafa MD [address] [place], [place] [id number] PCP - General 03/28/18 03/09/19 Ian Doshi MD [address] [place] [address] PCP - General 03/10/19 03/28/19 Sourav Shoemaker DO [address] [place] [address] PCP - General Family Medicine 03/29/19 03/03/20 Ian Doshi MD [address] [place] [address] PCP - General Family Medicine 03/04/20 Gustavo Dixon MD [address] [place] [address] Referring Physician Gastroenterology 07/26/23 documented as of this encounter
--- OUTSIDE RECORDS SUMMARY | 2025-07-30 15:30 | XMS_ITS | Encounter Summary ---
Author Organization [facility] Facility Care Team Providers Care Investment Analyst Name Role Phone Letha Mustafa MD Primary Care Provider [phone] Ian Doshi MD Primary Care Provider + Sourav Shoemaker DO Primary Care Provider + Ian Doshi MD Primary Care Provider + Gustavo Dixon MD Unavailable Encounter Details Date Type Department Care Team (Latest Contact Info) Description 04/13/2018 Orders Only [facility] Provider, MD Mekhi [address] [place] [address] Social History Tobacco Use Types Packs/Day Years Used Date Smoking Tobacco: Never Comments Unknown Sex and Gender Information Value Date Recorded Sex Assigned at Not on file Legal Sex Female 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 Historical Provider Final Res ult documented in this encounter Visit Diagnoses Not on filedocumented in this encounter Additional Health Concerns Infection Onset Date Last Indicated Resolved Time COVID: Suspected 09/15/2023 09/15/2023 09/15/2023 2:45 PM CDT COVID19 09/15/2023 09/15/2023 09/26/2023 3:05 AM BUTTON SEWING MACHINE OPERATOR Varicella/Zoster, contact + airborne Comment:09/16/23- shingles 09/16/2023 09/16/2023 09/23/2023 3: 05 AM BUTTON SEWING MACHINE OPERATOR COVID: Recovered Comment:Added based on recent COVID infection. 09/26/2023 09/28/2023 12/25/2023 3:[address] documented as of this encounter Care Teams Investment Analyst Relationship Specialty Start Date End Date Letha Mustafa MD PCP - General 03/28/18 03/09/19 Ian Doshi MD PCP - General 03/10/19 03/28/19 Sourav Shoemaker DO [address] [place] [address] PCP - General Family Medicine 03/29/19 03/03/20 Ian Doshi MD PCP - General Family Medicine 03/04/20 Gustavo Dixon MD [address] [place] [address] Referring Physician Gastroenterology 07/26/23 documented as of this encounter
--- OUTSIDE RECORDS SUMMARY | 2025-07-30 15:30 | XMS_ITS | Patient Health Record ---
Author Organization [employer] [facility] [facility] [place] ([address]) Address [address] [place] [address] Care Team Providers Care Staple Side Laster Name Role Phone Ian Doshi MD Primary Care Provider Unavail able Carole Junior Unavailable [phone] Allergies Allergen (clinical drug ingredient) Drug/Non Drug Allergy documented on EMR Reaction Allergy Type Onset Date Status Substance with sulfonamide structure and antibacterial mechanism of action (substance) SULFA (uncoded) Septra Allergy Active Reason For Referral No Information Medications Medication SIG (Take, Route, Frequency, Duration) Notes Start Date End Date Status PANTOPRAZOLE 40 mg 1 tab(s) orally once a day Active MULTIVITAMIN WITH MINERALS *Please review for potential replacement for e-prescription and drug interaction check* Active PAROXETINE 37.5 mg 1 tab(s) orally once a day (in the morning) Active Valtrex 500 MG 1 tab(s) orally once a day Active Celecoxib 200 MG 1 cap(s) orally once a day Active Pantoprazole Sodium 40 MG 1 tab(s) orally once a day Active PARoxetine HCl ER 37.5 MG 1 tab(s) orally once a day (in the morning) Active VALTREX 500 mg 1 tab(s) orally once a day Active CELECOXIB 200 mg 1 cap(s) orally once a day Active Immunizations Vaccine Route Administration Date Status Comme nts Influenza Unknown 08/21/2023 Administered Portal [employer] Social History Tobacco Use: Social History Observation Description Date Details (start date - stop date) Never Smoker NA - NA Tobacco Control (Standard) Question Answer Notes Tobacco use: Nonsmoker Problems Problem Type SNOMED Code ICD Code Onset Dates Problem Status W/U Status Risk Notes Problem Zoster with othe r complications (B02.8) Active confirmed Problem Chronic sinusitis (78193886) Chronic sinusitis, unspecified (J32.9) Active confirmed Problem Allergy status t o other antibiotic agents (Z88.1) Active confirmed Plan Of Treatment No Information Insurance Providers Payer Name Payer Address Payer Phone Subscriber Number Group Number Insured Name Patient Relationship to Insured Coverage Start Date Coverage End Date [facility] [address] [facility] [place] [id number] Dave Stuart Life Partner 4 Medical (General) History Surgical History Surgery Date(Month/Year) Bunion 11/11/2018 Corporal Tunnel 11/04/2018 parathyroid 02/13/2009 Hospitalization History Reason Date(Month/Year) Covid and Shingles 09/14/2023
--- OUTSIDE RECORDS SUMMARY | 2025-07-30 15:30 | XMS_ITS | Encounter Summary ---
Author Organization [facility] Facility Care Team Providers Care Resolution Specialist Name Role Phone Letha Mustafa MD Primary Care Provider [phone] Ian Doshi MD Primary Care Provider + Sourav Shoemaker DO Primary Care Provider + Ian Doshi MD Primary Care Provider + Gustavo Dixon MD Unavailable Encounter Details Date Type Department Care Team (Latest Contact Info) Description 07/28/2018 Orders Only [facility] ProviderMekhi MD [address] [place] [address] Social History Tobacco Use Types Packs/Day Years Used Date Smoking Tobacco: Never Comments Unknown Sex and Gender Information Value Date Recorded Sex Assigned at Not on file Legal Sex Female 7:53 AM 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 us Historical Provider Final Res ult documented in this encounter Visit Diagnoses Not on filedocumented in this encounter Additional Health Concerns Infection Onset Date Last Indicated Resolved Time COVID: Suspected 09/15/2023 09/15/2023 09/15/2023 2:45 PM CDT COVID19 09/15/2023 09/15/2023 09/26/2023 3:05 AM MENHADEN VESSEL PILOT Varicella/Zoster, contact + airborne Comment:09/16/23- shingles 09/16/2023 09/16/2023 09/23/2023 3: 05 AM MENHADEN VESSEL PILOT COVID: Recovered Comment:Added based on recent COVID infection. 09/26/2023 09/28/2023 12/25/2023 3:[address] documented as of this encounter Care Teams Resolution Specialist Relationship Specialty Start Date End Date Letha Mustafa MD PCP - General 03/28/18 03/09/19 Ian Doshi MD PCP - General 03/10/19 03/28/19 Sourav Shoemaker DO [address] [place] [address] PCP - General Family Medicine 03/29/19 03/03/20 Ian Doshi MD PCP - General Family Medicine 03/04/20 Gustavo Dixon MD [address] [place] [address] Referring Physician Gastroenterology 07/26/23 documented as of this encounter
--- OUTSIDE RECORDS SUMMARY | 2025-07-30 15:30 | XMS_ITS | Encounter Summary ---
Author Organization [facility] Facility Care Team Providers Care Asphalt Plant Worker Name Role Phone Elliot Lopez Primary Care Provider [phone] Elliot Lopez Primary Care Provider [phone] Letha Mustafa MD Primary Care Provider [phone] Ian Doshi MD Primary Care Provider + Sourav Shoemaker DO Primary Care Provider + Ian Doshi MD Primary Care Provider + Gustavo Dixon MD Unavailable [phone] Encounter Details Date Type Department Care Team (Latest Contact Info) Description 11/03/2017 Orders Only [facility] ProviderMekhi MD [address] [place] [address] Social History Tobacco Use Types Packs/Day Years Used Date Smoking Tobacco: Never Comments Unknown Sex and Gender Information Value Date Recorded Sex Assigned at Not on file Legal Sex Female 7:53 AM NUTRITION SERVICES WORKER Gender Identity Not on file Sexual Orientation Straight 04/19/2021 9: 45 AM CDT documented as of this encounter Plan of Treatment Not on file documented as of this encounter Procedures Procedure Name Priority Date/Time Associated Diagnosis Comments PROCEDURE - RESULT 11/03/2017 12 :00 AM NUTRITION SERVICES WORKER documented in this encounter Results * PROCEDURE - RESULT (11/03/2017 12:00 AM NUTRITION SERVICES WORKER) Narrative 11/03/2017 12:00 AM NUTRITION SERVICES WORKER Ordered by an unspecified provider. us Historical Provider Final Res ult documented in this encounter Visit Diagnoses Not on filedocumented in this encounter Additional Health Concerns Infection Onset Date Last Indicated Resolved Time COVID: Suspected 09/15/2023 09/15/2023 09/15/2023 2:45 PM CDT COVID19 09/15/2023 09/15/2023 09/26/2023 3:05 AM NUTRITION SERVICES WORKER Varicella/Zoster, contact + airborne Comment:09/16/23- shingles 09/16/2023 09/16/2023 09/23/2023 3: 05 AM NUTRITION SERVICES WORKER COVID: Recovered Comment:Added based on recent COVID infection. 09/26/2023 09/28/2023 12/25/2023 3:[address] documented as of this encounter Care Teams Asphalt Plant Worker Relationship Specialty Start Date End Date Elliot Lopez PA [address] [place], [place] [phone] PCP - General 08/23/17 03/20/18 Elliot Lopez PA [address] [place], [place] [address] PCP - General 03/21/18 03/27/18 Letha Mustafa MD [address] [place], [place] [phone] PCP - General 03/28/18 03/09/19 Ian Doshi MD [address] [place] [address] PCP - General 03/10/19 03/28/19 Sourav Shoemaker DO [address] [place] [address] PCP - General Family Medicine 03/29/19 03/03/20 Ian Doshi MD [address] [place] [address] PCP - General Family Medicine 03/04/20 Gustavo Dixon MD [address] [place] [address] Referring Physician Gastroenterology 07/26/23 documented as of this encounter
--- OUTSIDE RECORDS SUMMARY | 2025-07-30 15:30 | XMS_ITS | Encounter Summary ---
Author Organization [facility] Facility Care Team Providers Care Repeater Chief Name Role Phone Elliot Lopez Primary Care Provider [phone] Elliot Lopez Primary Care Provider [phone] Letha Mustafa MD Primary Care Provider [phone] Ian Doshi MD Primary Care Provider + Sourav Shoemaker DO Primary Care Provider + Ian Doshi MD Primary Care Provider + Gustavo Dixon MD Unavailable [phone] Encounter Details Date Type Department Care Team (Latest Contact Info) Description 03/02/2016 Orders Only [facility] ProviderMekhi MD [address] [place] [address] Social History Tobacco Use Types Packs/Day Years Used Date Smoking Tobacco: Never Comments Unknown Sex and Gender Information Value Date Recorded Sex Assigned at Not on file Legal Sex Female 7:53 AM LOAN FUNDER Gender Identity Not on file Sexual Orientation Straight 04/19/2021 9: 45 AM CDT documented as of this encounter Plan of Treatment Not on file documented as of this encounter Procedures Procedure Name Priority Date/Time Associated Diagnosis Comments COLONOSCOPY - SCAN 03/02/2016 12 :00 AM CDT documented in this encounter Results * COLONOSCOPY - SCAN (03/02/2016 12:00 AM CDT) Narrative 03/02/2016 12:00 AM CDT Ordered by an unspecified provider. us Historical Provider Final Res ult documented in this encounter Visit Diagnoses Not on filedocumented in this encounter Additional Health Concerns Infection Onset Date Last Indicated Resolved Time COVID: Suspected 09/15/2023 09/15/2023 09/15/2023 2:45 PM CDT COVID19 09/15/2023 09/15/2023 09/26/2023 3:05 AM LOAN FUNDER Varicella/Zoster, contact + airborne Comment:09/16/23- shingles 09/16/2023 09/16/2023 09/23/2023 3: 05 AM LOAN FUNDER COVID: Recovered Comment:Added based on recent COVID infection. 09/26/2023 09/28/2023 12/25/2023 3:[address] documented as of this encounter Care Teams Repeater Chief Relationship Specialty Start Date End Date Elliot Lopez PA [address] [place], [place] [phone] PCP - General 08/23/17 03/20/18 Elliot Lopez PA [address] [place], [place] [phone] PCP - General 03/21/18 03/27/18 Letha Mustafa MD [address] [place], [place] [address] PCP - General 03/28/18 03/09/19 Ian Doshi MD [address] [place] [address] PCP - General 03/10/19 03/28/19 Sourav Shoemaker DO [address] [place] [address] PCP - General Family Medicine 03/29/19 03/03/20 Ian Doshi MD [address] [place] [address] PCP - General Family Medicine 03/04/20 Gustavo Dixon MD [address] [place] [address] Referring Physician Gastroenterology 07/26/23 documented as of this encounter
--- OUTSIDE RECORDS SUMMARY | 2025-07-30 15:30 | XMS_ITS | Encounter Summary ---
Author Organization [facility] Facility Care Team Providers Care Nursing Home Assistant Administrator Name Role Phone Elliot Lopez Primary Care Provider [phone] Letha Mustafa MD Primary Care Provider [phone] Ian Doshi MD Primary Care Provider + Sourav Shoemaker DO Primary Care Provider + Ian Doshi MD Primary Care Provider + Gustavo Dixon MD Unavailable [phone] Encounter Details Date Type Department Care Team (Latest Contact Info) Description 03/24/2018 Orders Only [facility] ProviderMekhi MD [address] [place] [address] Social History Tobacco Use Types Packs/Day Years Used Date Smoking Tobacco: Never Comments Unknown Sex and Gender Information Value Date Recorded Sex Assigned at Not on file Legal Sex Female 7:53 AM WEB PRESS ROLL TENDER Gender Identity Not on file Sexual Orientation Straight 04/19/2021 9: 45 AM CDT documented as of this encounter Plan of Treatment Not on file documented as of this encounter Procedures Procedure Name Priority Date/Time Associated Diagnosis Comments SCAN - PATHOLOGY 03/30/2018 12:0 0 AM CDT documented in this encounter Results * SCAN - PATHOLOGY (03/30/2018 12:00 AM CDT) Narrative 03/30/2018 12:00 AM CDT Ordered by an unspecified provider. Historical Provider Final Res ult documented in this encounter Visit Diagnoses Not on filedocumented in this encounter Additional Health Concerns Infection Onset Date Last Indicated Resolved Time COVID: Suspected 09/15/2023 09/15/2023 09/15/2023 2:45 PM CDT COVID19 09/15/2023 09/15/2023 09/26/2023 3:05 AM WEB PRESS ROLL TENDER Varicella/Zoster, contact + airborne Comment:09/16/23- shingles 09/16/2023 09/16/2023 09/23/2023 3: 05 AM WEB PRESS ROLL TENDER COVID: Recovered Comment:Added based on recent COVID infection. 09/26/2023 09/28/2023 12/25/2023 3:[address] documented as of this encounter Care Teams Nursing Home Assistant Administrator Relationship Specialty Start Date End Date Elliot Lopez PA PCP - General 03/21/18 03/27/18 Letha Mustafa MD PCP - General 03/28/18 03/09/19 Ian Doshi MD PCP - General 03/10/19 03/28/19 [place] [address] [place] [address] PCP - General Family Medicine 03/29/19 03/03/20 Ian Doshi MD PCP - General Family Medicine 03/04/20 Gustavo Dixon MD [address] [place] [address] Referring Physician Gastroenterology 07/26/23 documented as of this encounter
--- OUTSIDE RECORDS SUMMARY | 2025-07-30 15:30 | XMS_ITS | Patient Health Record ---
Author Organization [facility] Address [address] [place], [place] [id number] Care Team Providers Care Maintenance Mechanic 2Nd Shift Name Role Phone AISHWARYACory AMOL Unavailable [phone] Radha Zazueta Unavailable Unavailable Allergies Allergen (clinical drug ingredient) Drug/Non Drug Allergy documented on EMR Reaction Allergy Type Onset Date Status Septra Unknown Drug Allergy Active Substance with sulfonamide structure and antibacterial mechanism of action (substance) Sulfa Antibiotics Unknown Drug Allergy Active Reason For Referral No Information [...] 37.5 MG Oral; Duration: 90 Days Active Vital Signs Height-cm 172.72 cm 06/18/2025 Weight-kg 76.66 kg 06/18/2025 Height 68.00 in 06/18/2025 Weight 169 lbs 06/18/2025 BMI 25.69 kg/m2 06/18/2025 Encounters Encounter Location Date Provider Diagnosis [facility] [place] [address] [place], [place] [id number] 06/18/2025 AMOL MAGANA Left foot pain M79.6 71 and Nondisplaced fracture of fifth metatarsal bone, left foot, subsequent encounter for fracture with routine healing S92.355D [facility] [place] [address] [place] [id number] 07/02/2025 AMOL SNOOK Nondisplaced fractur e of fifth metatarsal bone, left foot, subsequent encounter for fracture with routine healing S92.355D and Left foot pain M79.672 [facility] [place] [address] [place] [id number] 07/23/2025 AMOL SNOOK Nondisplaced fractur e of fifth metatarsal bone, left foot, subsequent encounter for fracture with routine healing S92.355D [facility] [place] [address] [place] [id number] 05/28/2025 AMOL SNOOK Nondisplaced fractur e of fifth metatarsal bone, left foot, initial encounter for closed fracture S92.355A and Left foot pain M79.672 Assessments Encounter Date Diagnosis (ICD Code) Assessment Notes Treatment Notes Treatment Clinical Notes Section Notes 05/28/2025 Nondisplaced fracture of fifth metatarsal bone, left foot, initial encounter for closed fracture (ICD-10 - S92.355A) Fracture Care: I discussed the nature and etiology of the injury to the patient and answered all questions. I discussed rest, immobilization, and time frame for healing. I explained that lack of compliance can lead to delayed healing or nonunion. Cam Walker: A CAM walker was fitted and dispensed. The patient was instructed on its use. 05/28/2025 Left foot pain (ICD-10 - M79.672) 06/18/2025 [...] as directed and to limit activity. 06/18/2025 Left foot pain (ICD-10 - M79.672) 07/02/2025 Nondisplaced fracture of fifth metatarsal bone, [...] 07/02/2025 Left foot pain (ICD-10 - M79.672) 07/23/2025 Nondisplaced fracture of fifth metatarsal bone, [...] office if any signs of symptoms return. 06/18/2025 Other Plan Of Treatment No Information Insurance Providers Payer Name Payer Address Payer Phone Subscriber Number Group Number Insured Name Patient Relationship to Insured Coverage Start Date Coverage End Date [employer] (VHX Plan) [address] [place] [id number] JAGJIT ESQUIVEL Other Medical (General) History Medical History History ICD Code acid reflux
--- OUTSIDE RECORDS SUMMARY | 2025-07-30 15:30 | XMS_ITS | Encounter Summary ---
Author Organization [facility] Address [address] [place] [address] Phone Care Team Providers Care Client Services Coordinator Name Role Phone Elliot Lopez Primary Care Provider [phone] Letha Mustafa MD Primary Care Provider [phone] Ian Doshi MD Primary Care Provider + Sourav Shoemaker DO Primary Care Provider + Ian Doshi MD Primary Care Provider + Gustavo Dixon MD Unavailable [phone] Encounter Details Date Type Department Care Team (Late st Contact Info) Description 03/21/2018 Orders Only [facility] ProviderMekhi MD [address] [place] [address] Social History Tobacco Use Types Packs/Day Years Used Date Smoking Tobacco: Never Comments Unknown Sex and Gender Information Value Date Recorded Sex Assigned at Not on file Legal Sex Female 7:53 AM BOMB SQUAD OFFICER Gender Identity Not on file Sexual Orientation Straight 04/19/2021 9: 45 AM CDT documented as of this encounter Plan of Treatment Not on file documented as of this encounter Procedures Procedure Name Priority Date/Time Associated Diagnosis Comments CYTOLOGY 03/21/2018 12:00 AM CDT documented in this encounter Results * CYTOLOGY (03/21/2018 12:00 AM CDT) Narrative 03/21/2018 12:00 AM CDT Ordered by an unspecified provider. us Historical Provider LAB CYTOLOGY ORDERABLES F inal Result documented in this encounter Visit Diagnoses Not on filedocumented in this encounter Additional Health Concerns Infection Onset Date Last Indicated Resolved Time COVID: Suspected 09/15/2023 09/15/2023 09/15/2023 2:45 PM CDT COVID19 09/15/2023 09/15/2023 09/26/2023 3:05 AM BOMB SQUAD OFFICER Varicella/Zoster, contact + airborne Comment:09/16/23- shingles 09/16/2023 09/16/2023 09/23/2023 3: 05 AM BOMB SQUAD OFFICER COVID: Recovered Comment:Added based on recent COVID infection. 09/26/2023 09/28/2023 12/25/2023 3:[address] documented as of this encounter Care Teams Client Services Coordinator Relationship Specialty Start Date End Date lEliot Lopez PA PCP - General 03/21/18 03/27/18 Letha Mustafa MD PCP - General 03/28/18 03/09/19 Ian Doshi MD PCP - General 03/10/19 03/28/19 Sourav Shoemaker DO [address] [place] [address] PCP - General Family Medicine 03/29/19 03/03/20 Ian Doshi MD PCP - General Family Medicine 03/04/20 Gustavo Dixon MD [facility] [place] [address] Referring Physician Gastroenterology 07/26/23 documented as of this encounter
--- OUTSIDE RECORDS SUMMARY | 2025-07-30 15:30 | XMS_ITS | Encounter Summary ---
Author Organization [facility] Facility Care Team Providers Care Knowledge Manager Name Role Phone Elliot Lopez Primary Care Provider [phone] Elliot Lopez Primary Care Provider [phone] Letha Mustafa MD Primary Care Provider [phone] Ian Doshi MD Primary Care Provider + Sourav Shoemaker DO Primary Care Provider + Ian Doshi MD Primary Care Provider + Gustavo Dixon MD Unavailable [phone] Encounter Details Date Type Department Care Team (Latest Contact Info) Description 10/23/2016 Orders Only [facility] ProviderMekhi MD [address] [place] [id number] Social History Tobacco Use Types Packs/Day Years Used Date Smoking Tobacco: Never Comments Unknown Sex and Gender Information Value Date Recorded Sex Assigned at Not on file Legal Sex 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 us Historical Provider Final Res ult documented in this encounter Visit Diagnoses Not on filedocumented in this encounter Additional Health Concerns Infection Onset Date Last Indicated Resolved Time COVID: Suspected 09/15/2023 09/15/2023 09/15/2023 2:45 PM CDT COVID19 09/15/2023 09/15/2023 09/26/2023 3:05 AM HOTEL DESK CLERK Varicella/Zoster, contact + airborne Comment:09/16/23- shingles 09/16/2023 09/16/2023 09/23/2023 3: 05 AM HOTEL DESK CLERK COVID: Recovered Comment:Added based on recent COVID infection. 09/26/2023 09/28/2023 12/25/2023 3:[address] documented as of this encounter Care Teams Knowledge Manager Relationship Specialty Start Date End Date Elliot Lopez PA [address] [place], [place] [phone] PCP - General 08/23/17 03/20/18 Elliot Lopez PA [address] [place], [place] [id number] PCP - General 03/21/18 03/27/18 Letha Mustafa MD [address] [place], [place] [phone] PCP - General 03/28/18 03/09/19 Ian Doshi MD [address] [place] [address] PCP - General 03/10/19 03/28/19 Sourav Shoemaker DO [address] [place] [id number] PCP - General Family Medicine 03/29/19 03/03/20 Ian Doshi MD [address] [place] [id number] PCP - General Family Medicine 03/04/20 Gustavo Dixon MD [address] [place] [address] Referring Physician Gastroenterology 07/26/23 documented as of this encounter
== END 2025-07-30 13:00 | disposition home or self-care (01) ==
PROVIDERS: PCP Internal Medicine; Visit Provider Urology
DX: N20.0 Calculus of kidney (principal)
CPT/HCPCS: 74018